=== PATIENT | female | born 1980 | race Two or more races ===

== ENCOUNTER 2017-02-05 23:00 | Inpatient (IN) | payer OTHER ==
[2017-02-05 23:58] VITALS: BMI 36.3
[2017-02-06] MEDS ORDERED: DEXTROSE 5%-LACTATED RINGERS 1,000 ML IV SCH (00:15)
[2017-02-06] MEDS ORDERED: TUBERCULIN PPD 5 TU/0.1ML SYRINGE (IN PATIENT USE ONLY) ID ONE (00:15)
[2017-02-06] MEDS ORDERED: AMPICILLIN - 100 ML IVPB ONE (00:15)
[2017-02-06 00:19] LABS: BASOPHIL 0.3 % (0-2.0); EOSINOPHIL 0.4 % (0-4.5); MCH 30.5 pg (25.7-33.7); MCHC 34.1 g/dl (32.0-36.0); MEAN CELL VOLUME 89.3 fl (80-96); MEAN PLT VOLUME 10.3 fl (7.5-11.1); NEUTROPHILS 79.6 % (42.8-82.8); PLATELET COUNT 260 K/MM3 (134-434); RDW 14.3 % (11.6-15.6); WHITE BLOOD COUNT 14.9 K/mm3 (4.0-10.0)
[2017-02-06 00:35] LABS: INR 0.97 (0.82-1.09); PROTHROMBIN TIME (PATIENT) 10.7 SEC (9.98-11.88)
[2017-02-06 00:44] LABS: ANION GAP 12 (8-16); CALCIUM 9.1 mg/dL (8.5-10.1); CO2 21 mmol/L (21-32); CREATININE 0.6 mg/dL (0.55-1.02); GLUCOSE,RANDOM 92 mg/dL (74-106)
[2017-02-06 01:01] LABS: HIV 1 & 2 AB NEGATIVE; HIV 1 AGp24 NEGATIVE
[2017-02-06] MEDS ORDERED: METHYLERGONOVINE MALEATE 0.2 MG/1 ML AMP IM PRN (01:27)
[2017-02-06] MEDS ORDERED: BENZOCAINE 28 GM HEMORRHOIDAL OINTMENT TP PRN (01:27)
[2017-02-06] MEDS ORDERED: BISACODYL 10 MG SUPP.RECT RC PRN (01:27)
[2017-02-06] MEDS ORDERED: WITCH HAZEL 50% (TUCKS) 40 PAD/JAR PAD TP PRN (01:27)
[2017-02-06] MEDS ORDERED: BENZOCAINE 20% 57 GM BOTTLE TP PRN (01:27)
[2017-02-06] MEDS ORDERED: OXYTOCIN 20 UNITS in 0.9% NS 1,000 ML IV SCH (01:30)
[2017-02-06] MEDS ORDERED: ELECTROLYTE-148 SOLN 1,000 ML IV SCH (01:30)
--- NOTE | 2017-02-06 01:36 | HP ---
Admitting History and Physical - Admission Chief Complaint: labor pains History of Present Illness: 36 y/o at term with contractions since this am. 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: No: Alzheimer's, CVA, Dementia, Migraine, Multiple Sclerosis, Peripheral Neuropathy, Parkinson's, Seizure, Syncope, TIA, Vertigo, Other Cardiovascular: No: AFIB, Aneurysm, Aortic Insufficiency, Aortic Stenosis, CAD, CHF, Deep Vein Thrombosis, HTN, Hyperlipdemia, ME, Mitral Insufficiency, Mitral Stenosis, Murmur, Pulmonary Hypertension, Other Pulmonary: No: Asthma, Bronchitis, Cancer, COPD, O2 Dependent, Pneumonia, Previously Intubated, Pulmonary Embolus, Pulmonary Fibrosis, Sleep Apnea, Other Gastrointestinal: No: Ascites, Cancer, Constipation, Crohn's Disease, Diverticulitis, Diverticulosis, Esophageal Varices, Gastritis, GERD, GI Bleed, Hemorrhoids, Hiatal Hernia, Inflamatory Bowel Disease, Irritable Bowel Disease, Pancreatitis, Peptic Ulcer Disease, Ulcerative Colitis, Other Hepatobiliary: No: Cirrhosis, Cholelithiasis, Cholecystitis, Choledocholithiasis , Hepatitis A, Hepatitis B, Hepatitis C, Other Renal/: No: Renal Failure, Renal Inusuff, BPH, Cancer, Hematuria, Hemodialysis , Neurogenic Bladder, Renal Calculi, UTI, Other Reproductive: No: Ectopic , Endometriosis, Fibroids, PID, Polycystic Ovary Syndrome, Postmenopausal, Other ...: 3 ...Para: 2 Heme/Onc: No: Anemia, B12 Deficiency, Bleeding Disorder, Cancer, Current Chemotherapy, Current Radiation Therapy, Hemochromatosis, Hypercoaguable State, Myeloproliferative Synd, Sickle Cell Disease, Sickle Cell Trait, Thrombocytopenia, Other Infectious Disease: No: AIDS, C-Diff, Herpes Zoster, HIV, MRSA, STD's, Tuberculosis, VREF, Other Psych: No: Addictions, Anxiety, Bipolar, Depression, Panic, Psychosis, Schizophrenia, Other Musculoskeletal: No: Bursitis, Chronic low back pain, Hemiparesis, Hemiplegia, Osteoarthritis, Paraplegia, Other Rheumatology: No: Fibromyalgia, Gout, Lupus, Rheumatoid Arthritis, Sarcoidosis, Vasculitis, Other - Smoking History Smoking history: Never smoked - Alcohol/Substance Use Hx Alcohol Use: No Home Medications - Allergies Allergies/Adverse Reactions: Allergies Allergy/AdvReac Type Severity Reaction Status Date / Time No Known Allergies Allergy Verified 02/05/17 16:10 - Home Medications Home Medications: Ambulatory Orders Ferrous Gluconate [Iron] 256 mg PO DAILY 02/05/17 Vit No.130/Iron/FA [ Vitamins] 1 each PO DAILY 02/05/17 Review of Systems - Review of Systems Constitutional: reports: No Symptoms Eyes: reports: No Symptoms HENT: reports: No Symptoms Neck: reports: No Symptoms Cardiovascular: reports: No Symptoms Respiratory: reports: No Symptoms Gastrointestinal: reports: No Symptoms Genitourinary: reports: No Symptoms Breasts: reports: No Symptoms Reported Musculoskeletal: reports: No Symptoms Integumentary: reports: No Symptoms Neurological: reports: No Symptoms Endocrine: reports: No Symptoms Hematology/Lymphatic: reports: No Symptoms Physical Examination Vital Signs: Vital Signs Temperature 97.7 F 02/05/17 23:51 Pulse Rate 80 02/05/17 23:51 Respiratory Rate 20 02/05/17 23:51 Blood Pressure 121/75 02/05/17 23:51 O2 Sat by Pulse Oximetry (%) Constitutional: Yes: Well Nourished Eyes: Yes: WNL HENT: Yes: WNL Neck: Yes: WNL Cardiovascular: Yes: WNL Respiratory: Yes: WNL Gastrointestinal: Yes: WNL ...Rectal Exam: Yes: WNL Renal/: Yes: WNL Musculoskeletal: Yes: WNL Extremities: Yes: WNL Labs: CBC, BMP 02/05/17 23:55 02/05/17 23:55 Assessment/Plan admit labs expect
[2017-02-06] MEDS ORDERED: AMPICILLIN - 100 ML IVPB SCH (04:15)
[2017-02-06] MEDS: ACETAMINOPHEN 325 MG TABLET (FP) PO PRN ×3 (06:15→18:47)
[2017-02-06] MEDS: IBUPROFEN 600 MG TABLET (FP) PO PRN ×3 (06:16→18:46)
[2017-02-07] MEDS: IBUPROFEN 600 MG TABLET (FP) PO PRN ×3 (07:59→20:29)
[2017-02-07] MEDS: ACETAMINOPHEN 325 MG TABLET (FP) PO PRN ×3 (08:02→20:30)
[2017-02-07 08:56] LABS: BASOPHIL 0.5 % (0-2.0); EOSINOPHIL 0.6 % (0-4.5); MCHC 32.9 g/dl (32.0-36.0); MEAN CELL VOLUME 91.2 fl (80-96); MEAN PLT VOLUME 9.6 fl (7.5-11.1); PLATELET COUNT 245 K/MM3 (134-434); RDW 14.4 % (11.6-15.6)
[2017-02-07] MEDS ORDERED: DIPHTH,PERTUSS(ACELL),TET 0.5 ML DISP.SYRIN IM ONE (10:00)
--- NOTE | 2017-02-07 10:06 | PN ---
Post Progress Note - Subjective Subjective: no complains Post Day: 1 Type of Delivery: Vital Signs: Vital Signs Temperature 98.3 F 02/07/17 07:45 Pulse Rate 78 02/07/17 07:45 Respiratory Rate 20 02/07/17 07:45 Blood Pressure 133/87 02/07/17 07:45 O2 Sat by Pulse Oximetry (%) Breast Exam: Yes: Soft. No: Engorged (breast feeding ) Uterus: Yes: Fundus Firm, Fundus below umbilicus, Non-tender Lochia, amount: Moderate Extremities: Yes: Calves non-tender Perineum: Yes: Laceration Activity: Ambulating - Labs Labs: CBC WBC 12.0 K/mm3 (4.0-10.0) H 02/07/17 07:35 RBC 4.24 M/mm3 (3.60-5.2) 02/07/17 07:35 Hgb 12.7 GM/dL (10.7-15.3) 02/07/17 07:35 Hct 38.7 % (32.4-45.2) 02/07/17 07:35 MCV 91.2 fl (80-96) 02/07/17 07:35 MCH 30.0 pg (25.7-33.7) 02/07/17 07:35 MCHC 32.9 g/dl (32.0-36.0) 02/07/17 07:35 RDW 14.4 % (11.6-15.6) 02/07/17 07:35 Plt Count 245 K/MM3 (134-434) 02/07/17 07:35 MPV 9.6 fl (7.5-11.1) 02/07/17 07:35 Neutrophils % 72.0 % (42.8-82.8) 02/07/17 07:35 Lymphocytes % 20.8 % (8-40) D 02/07/17 07:35 Monocytes % 6.1 % (3.8-10.2) 02/07/17 07:35 Eosinophils % 0.6 % (0-4.5) 02/07/17 07:35 Basophils % 0.5 % (0-2.0) 02/07/17 07:35 Assessment/Plan stable discharge tomorrow.
[2017-02-07] MEDS ORDERED: SENNOSIDES/DOCUSATE COMBO (SENNA PLUS) TABLET (UD) PO PRN (22:00)
[2017-02-08] MEDS: IBUPROFEN 600 MG TABLET (FP) PO PRN (06:18)
[2017-02-08] MEDS: ACETAMINOPHEN 325 MG TABLET (FP) PO PRN (06:19)
[2017-02-08 08:56] VITALS: BP 110/62; PULSE 88; TEMP 98
--- NOTE | 2017-02-08 09:28 | DS ---
Physical Exam-[facility] Vital Signs: Vital Signs Temperature 98 F 02/08/17 08:48 Pulse Rate 88 02/08/17 08:48 Respiratory Rate 18 02/08/17 06:24 Blood Pressure 110/62 02/08/17 08:48 O2 Sat by Pulse Oximetry (%) Constitutional: Yes: Well Nourished Eyes: Yes: Conjunctiva Clear HENT: Yes: Atraumatic Neck: Yes: Supple Cardiovascular: Yes: Regular Rate and Rhythm Respiratory: Yes: Regular Gastrointestinal: Yes: Normal Bowel Sounds External Genitalia: Yes: Normal Vaginal Exam: Yes: Normal Cervix: Yes: Normal Uterus: Yes: Firm ....Post : Yes: Uterus firm, Moderate lochia serosa Breast(s): Yes: WNL Musculoskeletal: Yes: WNL Extremities: Yes: WNL Integumentary: Yes: WNL Neurological: Yes: Alert, Oriented ...Motor Strength: WNL Psychiatric: Yes: Alert, Oriented Labs: CBC, BMP 02/07/17 07:35 02/05/17 23:55 Delivery - Delivery Type of Anesthesia: Local Episiotomy/Laceration: Midline EBL (cc): 300 Delivery, Single - Stages of Labor Date 1st Stage Initiatied: 02/05/17 Time 1st Stage Initiated: 15:00 Date 2nd Stage Initiated: 02/06/17 Time 2nd Stage Initiated: 00:40 Date of Delivery: 02/06/17 Time of Delivery: 01:15 Time Placenta Delivered: 01:20 - Condition of Infant 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 [place] Present: No Gender: Male Weight: 7 lb 6 oz Position: OA Total Hours ROM (Hrs/Mins): 40mins - 1 Minute Total Score: 9 5 Minutes Total Score: 9 - Feeding Plan Initial Plan: Elected not to breastfeed exclusively throughout hospitalization Discharge Summary Reason For Visit: LABOR ADMIT Current Active Problems Status post normal vaginal delivery (Acute) Procedures: Principal: Normal vaginal delivery Hospital Course: Routine care Condition: Good - Instructions Diet, Activity, Other Instructions: Regular diet No douching, no sexual intercourse x 6 weeks F/U in clinic in 6 weeks Disposition: HOME - Home Medications Comprehensive Discharge Medication List: Ambulatory Orders Ferrous Gluconate [Iron] 256 mg PO DAILY 02/05/17 Vit No.130/Iron/FA [ Vitamins] 1 each PO DAILY 02/05/17
== END 2017-02-08 12:15 | disposition home or self-care (01) | DRG 560 ==
LOC: JDEL 23:00 → JLDR 23:25 → J3W 02-06 03:32
PROVIDERS: ADMIT Obstetrics & Gynecology; ATTEND Obstetrics & Gynecology
PROC: 10E0XZZ Delivery of Products of Conception, External Approach (ICD-10-PCS; principal; 2017-02-06)
PROC: 0W8NXZZ Division of Female Perineum, External Approach (ICD-10-PCS; 2017-02-06)
DX: O80 Encounter for full-term uncomplicated delivery (principal); Z3A.38 38 weeks gestation of pregnancy; Z37.0 Single live birth
CPT/HCPCS: 36415; 59025; 59409; 80048; 85025; 85610; 85730; 86593; 86850; 86900; 86901; 87389; 90715